=== PATIENT | male | born 1985 | race Caucasian/White ===

== ENCOUNTER 2024-07-17 10:12 | Outpatient (OUT) | payer OTHER, SELFPAY ==
--- NOTE | 2024-07-17 | ECG_ITS ---
[facility] Test Date: 2024-07-17 Pat Name: YUNG GILMORE Department: Room: - Gender: Male Group Account Director: : [id number] Requested By: [id number] Order Number: [id number] Reading MD: EDITH VARGAS Measurements Intervals [place] Rate: 54 P: 59 RI: 193 QRS: 59 QRSD: 105 T: 52 QT: 427 QTc: 405 Interpretive Statements SINUS BRADYCARDIA WITH SINUS ARRHYTHMIA No previous ECG available for comparison Electronically Signed On 07-17-2024 19:32:00 EST by EDITH VARGAS
== END 2024-07-17 10:13 | disposition home or self-care (01) ==
LOC: CARD 10:13
DX: I10 Essential (primary) hypertension (principal)
CPT/HCPCS: 93005